=== PATIENT | female | born 1975 | race African-American/Black ===

== ENCOUNTER 2017-11-11 12:45 | Observation (INO) ==
[2017-11-11 14:10] LABS: Apearance,Urine CLEAR (Clear); Bacteria,Urine Occasional /HPF (Few); Bilirubin,Urine Negative (Negative); Blood, Urine Large mg/dL (Negative); Glucose,Urine (UA) Negative (Negative); Ketones,Urine Negative (Negative); Mucus,Urine Occasional /LPF (Occasional); Nitrite,Urine Negative (Negative); Protein,Urine Negative; RBC,Urine 3 /HPF (0-4); Squamous Epithelial Cell,Urine Occasional /HPF (0-10); Urine Color Yellow (Yellow); Urine Specific Gravity 1.014 (1.001-1.035); WBC,Urine 3 /HPF (0-6)
[2017-11-11 14:24] LABS: % Iron Saturation 1.9 % (18-50); Ferritin 0.7 ng/ml (8-252)
[2017-11-11 14:28] LABS: Basophils % 0.6 % (0.0-0.8); Eosinophils % 0.8 % (0.00-10.9); Immature Granulocytes % 0.2 %; Immature Granulocytes Absolute 0.01 #; Lymphocytes # 1.1 10*3/uL (1.4-4.0); Lymphocytes % 21.4 % (21.3-54.2); Mean Corpuscular HGB Conc 23.5 GM/DL (32-36); Mean Corpuscular Hemoglobin 14 PG (27-34); Mean Corpuscular Volume 58.6 FL (87-102); Monocytes # 0.3 10*3/uL (0.11-0.8); Monocytes % 6.3 % (1.7-12.7); Neutrophils # 3.7 10*3/uL (1.4-7.4); Neutrophils % 70.7 % (38.7-73.9); Platelet Count 145 T/CUMM (130-400); Red Cell Distribution Width 21.6 % (9.3-17.3); White Blood Count 5.2 T/CUMM (4-12)
[2017-11-11 14:31] LABS: Folate 8.3 NG/ML (5.4-24.0)
[2017-11-11 14:37] LABS: Hemoglobin 4.4 GM/DL (12.0-16.0)
[2017-11-11 14:38] LABS: Hematocrit 18.7 VOL% (35.7-47.0); Red Blood Count 3.19 MC/CUMM (3.8-5.5)
[2017-11-11 14:42] LABS: Alanine Aminotransferase 12 U/L (13-56); Albumin 3.6 G/DL (3.4-5.0); Alkaline Phosphatase 80 U/L (45-117); Aspartate Amino Transferase 8 U/L (0-37); Bilirubin,Total < 0.39 MG/DL (0.2-1.0); Blood Urea Nitrogen 5 MG/DL (7-18); Calcium 10.2 MG/DL (8.5-10.1); Glucose 97 MG/DL (74-106); Osmolality,Calculated 279.1 MOS/KG (273-304); Potassium 3.3 MMOL/L (3.5-5.1); Sodium 142 MMOL/L (136-145)
[2017-11-11] MEDS ORDERED: BISACODYL 10 MG SUPP RECTAL PRN (15:52)
[2017-11-11] MEDS ORDERED: SODIUM CHLORIDE 0.9% 1,000 ML IV PRN (15:52)
[2017-11-11] MEDS ORDERED: LACTATED RINGERS 1,000 ML IV SCH (15:52)
[2017-11-11] MEDS ORDERED: ACETAMINOPHEN 325 MG TABLET PO PRN (15:52)
[2017-11-11] MEDS ORDERED: IBUPROFEN 800 MG TABLET PO PRN (15:52)
[2017-11-11] MEDS ORDERED: MAGNESIUM HYDROXIDE SUSP 30 ML UDCUP PO PRN (15:52)
[2017-11-11] MEDS ORDERED: ONDANSETRON 4 MG/2 ML VIAL IV PRN (15:52)
[2017-11-12] MEDS: ACETAMINOPHEN 500 MG TABLET PO PRN ×2 (00:07→09:52)
[2017-11-12] MEDS: DOCUSATE SODIUM 100 MG CAPSULE PO SCH ×2 (00:08→09:52)
[2017-11-12 08:24] VITALS: BP 115/58
[2017-11-12 09:01] LABS: Hematocrit 26.6 VOL% (35.7-47.0); Hemoglobin 7.5 GM/DL (12.0-16.0)
== END 2017-11-12 13:00 | disposition home or self-care (01) ==
LOC: N.ED 12:45 → N.EDINP 12:45 → N.OB 15:51
PROVIDERS: ADMIT Obstetrics & Gynecology; ATTEND Obstetrics & Gynecology